=== PATIENT | female | born 1970 | race Caucasian/White ===

== ENCOUNTER → 2019-12-29 15:44 | Outpatient (CLI) | payer SELFPAY ==
[2019-12-29 16:30] LABS: BNP,B-Type NATRIURETIC PEPTIDE 10.6 pg/mL (0-100)
== END ==
LOC: LABSPEC 15:45
PROVIDERS: PCP Internal Medicine; Visit Provider Nurse Practitioner
DX: R60.1 Generalized edema (principal); R06.02 Shortness of breath
CPT/HCPCS: 83880

== ENCOUNTER 2023-09-17 08:53 | Outpatient (RCR) | payer BC, SELFPAY ==
--- NOTE | 2023-09-30 10:49 | HP.OTFCE_ITS ---
Task Lift Floor (Occasional 1-33% of Day): 20# Floor (Frequent 34-66% of Day): 10# Floor (Constant 67-100% of Day): NA Floor PDL: Light Knee (Occasional 1-33% of Day): 20# Knee (Frequent 34-66% of Day): 10# Knee (Constant 67-100% of Day): NA Knee PDL: Light Waist (Occasional 1-33% of Day): 20# Waist (Frequent 34-66% of Day): 10# Waist PDL: Sedentary-Light Shoulder (Occasional 1-33% of Day): 15# Shoulder (Frequent 34-66% of Day): 8# Shoulder (Constant 67-100% of Day): NA Shoulder PDL: Sedentary-Light Overhead (Occasional 1-33% of Day): 10# Overhead (Frequent 34-66% of Day): NA Overhead (Constant 67-100% of Day): NA Overhead PDL: Sedentary Comments: Light Physical Demand level lifting from floor, knee and waist heights Sedentary-light Physical demand level lifting from shoulder level Sedentary physical demand level lifting from overhead levels Work Activity/Posture Bending: Occasional Ability (1-33% of day) Comments: low occasional ability due to increase in pain Squatting: Occasional Ability (1-33% of day) Comments: low occasional ability with use of external support Kneeling: No Ablility (0% of day) Reaching out: Occasional Ability (1-33% of day) Reaching up: Occasional Ability (1-33% of day) Sitting: Occasional Ability (1-33% of day) Comments: need to shift body weight Walking: Occasional Ability (1-33% of day) Comments: low occasional ability Standing: Occasional Ability (1-33% of day) Comments: low occasional ability Reference Reference: Duration Sedentary Sedentary Light Light Light Medium Medium Medium Heavy Very Heavy Heavy Occasional (0-33% of day) Frequent (34-66% of day) Constant (67-100% of day) 10 # Negligible Negligible 15 # 8 # Negligible 20 # 10# Negli. 35 # 18 # 7 # 50 # 25 # 10 # 75 # 100 # >100 # 38 # 50 # >50 # 15 # 20 # >20 # Patient Information Height: 1.6 m Weight:: 121.109 kg Hand Dominance: Right Medical History Medical History Including Restrictions: This 53 year old female states she was in good health prior to her work injury in 2007. Pt states she was with a [employer] client who was having a behavior (pt was morbid obesity 250lbs+) pt states she called her casework supervisor and due to her 2nd employee not showing up and she was by herself- with this and her casework supervisor instructing her to get the client on the bus to go to the work shop - pt states as client was having a behavior (sitting on ground not standing) she picked pt up and got her in a wc. pt states she he rniation of L5- S1 with thoracic sprain L4-L5 collapsed. pt states she went to her main office after she got the client on the bus. Told her company and they sent her to [facility]. 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 pt states she went through Physical therapy close to three months and then an MRI was recommended. Pt states while she was waiting for her MRI she was medicate with pain medication- Had MRI and was seen about two years after her initial injury by [facility] Dr. Walton. pt states due to her DMII and her obesity would not due her ex. pt states she was sent to pain mtg for injections with Basali- pt states she has not had good success with the back injections- feels like something more is going on in her back. pt states due to her family history of the mental health- pt has been working with counseling services on and off for years. pt states she was placed on restrictions: in 2007 No lifting more 10-15# no bending/twisting/reaching over head. No push /pull permit/partial. Diagnoses Diagnoses: DDD DMII L5-S1 empty sella syndrome HTN Lipemia Glaucoma Bipolar disorder 1 dx May. 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 Pt states she returned to work she was employed for 4 years following on light duty. pt states her job duties would have include client care. pt states she was last employed February 2020. pt states she could not continue performing her work tasks without pain- pt states she was placed on light duty: where she was performing cooking, laundry and supervising client. Behavioral Behavioral: pt cooperative throughout session. ADLS ADLS: pt states she lives with her in a two story home. Pt states there are three entry steps with no railing. pt states they are on 1st floor set-up pt states basement has washer/dry and her does it so pt does not have to go in the basement. pt states she has tub/shower- pt states her sink is right next to the shower and she will hold on to that to get in and out. pt states she does sit to put pants on. does grocery shopping/lawn care/laundry Pt drives short distances as able- pt does light cleaning , light cooking. Physical Examination ROM: pt demonstrates ROM WFL noted limited Hip flexion 75* due to adipose tissue. Strength: Fet2 peak force testing in lbs shoulder flexion right 10# left 11# shoulder extension right 18# left 17# Biceps right 15# left 16# Triceps right 14# left 15# Hip Flexion right 14.7# left 15# with pain in hip Quadriceps right 14# left 17# Hamstrings right 10# left 12# Right Development Engineer Strength Average: 48.33 Right Development Engineer Strength Percentile: 8% Left Development Engineer Strength Average: 48.33 Left Development Engineer Strength Percentile: 11% Right Lateral Pinch Average: 8.00 Right Lateral Pinch Percentile: <10% Left Lateral Pinch Average: 6.00 Left Lateral Pinch Percentile: <10% Right Tripod Pinch Average: 6.66 Right Tripod Pinch Percentile: <10% Left Tripod Pinch Average: 8.66 Left Tripod Pinch Percentile: 25% Sensation: denies in fingers Fine Motor: pt reports no deficits with her FMS denies Balance: Functional reach balance score 6 Interpretation: A score of 6 or less indicates a significant increased risk for falls. A score between 6-10 inches indicates a moderate risk for falls. Non Material Handling Activities Bending: pt states with bending forward she gets increase pain with pulling sensation pt able to perform 3x pt unable to perform more. pt can bend forward on Low occasional ability Squatting: pt demo the ability to squat with external support 3x pt reported pain at 7/10 heart 117 pt can squat on low occasional ability Kneeling: unable Reaching out/up: pt demo the ability to reach out /up 3x, 10x pt unable to complete 10x rapidly pt reports 6/10 middle of her back heart rate 101 pt can reach up/out on a occasional ability Walking: pt demo the ability to ambulate 4 min in department with frequent rest breaks. Pt becomes SOB and reports increase pain in right groin. pt can ambulate on low occasional ability. Standing: pt demo standing for 4 min shifting body weight. pt reports with increase standing back and right groin pain 7/10 pt can stand on low occasional ability Sitting: pt demo the ability to sit for 45 min with shifting body weight pt can sit on occasional ability Climbing Stairs: pt demo the ability to ascend and descend 6 steps with use of bilateral hand rails and single step pattern ascending and descending. pt has increase pain in right groin 7/10 Dynamic Occasional Lifting Capacity Floor Lift: pt demo the ability to lift 20# maximally from this level with poor lifting mechanics. Pt reported pain 8/10 with lift and heart rate 117 Knee Lift: pt demo the ability to lift 20# maximally from this level with poor lifting mechanics. Pt reported pain 8/10 with lift Waist Lift: pt demo the ability to lift 20# maximally from this level with poor lifting mechanics. Pt reported pain 8/10 with lift Shoulder Lift: pt demo the ability to lift 15# maximally from this level with poor lifting mechanics. Pt reported pain 8/10 with lift Overhead Lift: pt demo the ability to lift 10# maximally from this level with poor lifting mechanics. Pt reported pain 8/10 with lift Carrying: pt demo the ability to carry 15# for 10 feet. pt heart rate 106 with carry. Comments: pts heart rate did vary throughout session ranging from 87 -117 pts pain limiting pts mobility as pain ranged from 4/10 -7/10 pt SOB with activity
--- NOTE | 2023-09-30 10:49 | HP.OTFCE.D ---
FCE D/C Summary Discharge text: TRAVIS GAY SHORE was seen for a one time visit for an FCE on 09/17/23 and is discharged.
== END 2023-09-17 19:00 | disposition home or self-care (01) ==
LOC: OT 08:53
PROVIDERS: PCP Internal Medicine; Referring Provider Internal Medicine; Visit Provider Internal Medicine
DX: M51.9 Unspecified thoracic, thoracolumbar and lumbosacral intervertebral disc disorder (principal)
CPT/HCPCS: 97750